=== PATIENT | female | born 1990 | race Two or more races ===

== ENCOUNTER → 2018-07-15 | Outpatient (CLI) | payer OTHER ==
[2018-07-15 10:13] LABS: Basophils # (auto) 0 uL; Basophils % (auto) 0.4 % (0.0-2.0); Eosinophils # (auto) 0 uL; Eosinophils % (auto) 0.4 % (0.0-7.0); Hematocrit 40.4 % (36.0-46.0); Hemoglobin 13.5 g/dL (12.2-16.2); Lymphocytes # (auto) 1.6 uL; Mean Corpuscular Hemoglobin 28.9 pg (28.0-32.0); Mean Corpuscular Hgb Conc. 33.4 g/dL (32.0-36.0); Mean Corpuscular Volume 86.3 fL (80.0-100.0); Monocytes # (auto) 0.3 uL; Monocytes % (auto) 4.4 % (0.0-12.0); Neutrophils # (auto) 4.6 uL; Neutrophils % (auto) 70.8 % (37.0-80.0); Platelet Count (auto) 295 10^3/uL (140-450); Red Blood Cells 4.68 10^6/uL (4.0-5.20); Red Cell Distribution Width 13.4 % (11.8-14.3); White Blood Cell 6.5 10^3/uL (4.4-10.8)
[2018-07-15 10:42] LABS: Alcohol, Urine < 3.0 mg/dL (0-5); Amphetamine Screen, Urine NEGATIVE (NEGATIVE); Barbiturate Scree,Urine NEGATIVE (NEGATIVE); Benzodiazephine Screen, Urine NEGATIVE (NEGATIVE); Cannabinoid Screen, Urine POSITIVE (NEGATIVE); Cocaine Screen, Urine NEGATIVE (NEGATIVE); Opiate Scree,Urine NEGATIVE (NEGATIVE); Phencyclidine Screen, Urine NEGATIVE (NEGATIVE)
[2018-07-16 05:06] LABS: RPR Non Reactive (Non Reactive)
== END | disposition home or self-care (01) ==
LOC: LAB 09:06
PROVIDERS: ATTEND Obstetrics & Gynecology
DX: Z34.81 Encounter for supervision of other normal pregnancy, first trimester (principal); Z3A.01 Less than 8 weeks gestation of pregnancy
CPT/HCPCS: 36415; 80307; 81220; 84144; 84702; 85025; 86592; 86703; 86762; 86850; 86900; 86901; 87086; 87088; 87186; 87340

== ENCOUNTER 2018-10-13 14:45 | Observation (INO) | payer OTHER ==
[~2018-10-13] VITALS: Ht 157.5 cm; Wt 91.6 kg
[2018-10-13] MEDS ORDERED: BETAMETHASONE ACET (6MG/ML) 5ML VIAL IM ONE (16:00)
[2018-10-13] MEDS ORDERED: PREN-96 PO (16:02)
[2018-10-13] MEDS ORDERED: PROG200C6 VG (16:02)
[2018-10-13] MEDS ORDERED: NIF10C PO (16:02)
== END 2018-10-13 18:16 | disposition home or self-care (01) | DRG 833 ==
LOC: LDRP 14:45
PROVIDERS: ADMIT Specialist; ATTEND Specialist
DX: O26.872 Cervical shortening, second trimester (principal); O99.342 Other mental disorders complicating pregnancy, second trimester; F12.90 Cannabis use, unspecified, uncomplicated; Z3A.25 25 weeks gestation of pregnancy
CPT/HCPCS: 59025; 76817; 81002; G0378; J0702; 96372

== ENCOUNTER 2018-10-14 16:55 | Observation (INO) | payer OTHER ==
[~2018-10-14 16:55] MED LIST: NIF10C PO; PREN-96 PO; PROG200C6 VG
[2018-10-14] MEDS ORDERED: BETAMETHASONE ACET (6MG/ML) 5ML VIAL IM ONE (17:30)
== END 2018-10-14 17:45 | disposition home or self-care (01) | DRG 833 ==
LOC: LDRP 16:55
PROVIDERS: ADMIT Obstetrics & Gynecology; ATTEND Obstetrics & Gynecology
DX: O60.02 Preterm labor without delivery, second trimester (principal); O99.343 Other mental disorders complicating pregnancy, third trimester; F12.90 Cannabis use, unspecified, uncomplicated; O26.892 Other specified pregnancy related conditions, second trimester; H53.8 Other visual disturbances; Z3A.25 25 weeks gestation of pregnancy
CPT/HCPCS: 59025; 81002; 96372; G0378